=== PATIENT | female | born 1930 | race Hispanic/Latino ===

== ENCOUNTER → 2017-07-03 | Outpatient (CLI) | payer MEDICARE | END | disposition home or self-care (01) | LOC: RAH 16:21 | PROVIDERS: ATTEND Internal Medicine | DX: S14.109A Unspecified injury at unspecified level of cervical spinal cord, initial encounter (principal); R51 Headache; M79.604 Pain in right leg; R60.0 Localized edema; Z91.81 History of falling; X58.XXXA Exposure to other specified factors, initial encounter; Y93.89 Activity, other specified; Y92.89 Other specified places as the place of occurrence of the external cause; Y99.8 Other external cause status | CPT/HCPCS: 70450; 72040; 73590 ==